=== PATIENT | female | born 1980 | race Caucasian/White ===

== ENCOUNTER 2021-02-28 04:32 | Emergency (ER) | payer BC, OTHER ==
[2021-02-28] MEDS ORDERED: predniSONE 20 MG Tab PO ONE (04:45)
[2021-02-28] MEDS ORDERED: Famotidine 20 MG Tab PO ONE (04:58)
--- NOTE | 2021-02-28 05:04 | EDM.PDOC ---
ED HPI GENERAL MEDICAL PROBLEM - General Chief Complaint: Cardiovascular Problem Stated Complaint: hives; chest pain Time Seen by Provider: 02/28/21 04:43 Source of Information: Reports: Patient History Limitations: Reports: No Limitations - History of Present Illness INITIAL COMMENTS - FREE TEXT/NARRATIVE: Presents emergency room for chief complaint of hives. Hives started on Sunday night after [place] She has been outdoors and [place]. No known insect bite. She has been dosing Benadryl throughout the day hives come and go with severe pruritus. They are all across her body. She woke up tonight with some chest tightness feeling sensation of throat swelling and lip swelling. No known triggers known, no history of anaphylactic reaction. She is not exactly sure what she was exposed to that she may be allergic to. Last Benadryl was right before bed with 50 mg. She has normally taken 25 mg dosing. Mid Chest pain Pain Score (Numeric/FACES): 5 - Related Data Allergies Allergy/AdvReac Type Severity Reaction Status Date / Time No Known Drug Allergies Allergy none Verified 02/28/21 04:37 Home Meds: Home Meds Hydrocodone/Acetaminophen [Lorcet Plus 7.5-325 mg Tablet] 7.5 - 325 mg PO Q6HR PRN 06/29/14 [History] Ibuprofen [Children's Motrin] 30 ml PO Q6HR PRN 06/29/14 [History] LORazepam [Ativan] 0.5 mg PO TID 06/29/14 [History] Levothyroxine [Synthroid] 50 mcg PO DAILY 06/29/14 [History] cephALEXin [Keflex 250 MG/5 ML Susp] 5.6 ml PO Q6HR 06/29/14 [History] Ondansetron [Zofran ODT] 8 mg PO Q8HR PRN 06/30/14 [History] Promethazine [Phenergan] 0.25 mcg TOP ASDIRECTED PRN 06/30/14 [History] Social & Family History - Living Situation & Occupation Living situation: Reports: ED ROS GENERAL - Review of Systems Review Of Systems: Comprehensive ROS is negative, except as noted in HPI. 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) Skin: Reports: Pruritis, Urticaria ED EXAM, GENERAL - Physical Exam Exam: See Below Exam Limited By: No Limitations General Appearance: Alert, WD/WN, No Apparent Distress Throat/Mouth: Normal Inspection, Normal Lips, Normal Oropharynx, Normal Voice, No Airway Compromise, Other (There is slight angioedema to her upper lip) Head: Atraumatic, Normocephalic Neck: Normal Inspection, Supple, Non-Tender Respiratory/Chest: No Respiratory Distress, Lungs Clear, Normal Breath Sounds, No Accessory Muscle Use Cardiovascular: Normal Peripheral Pulses, Regular Rate, Rhythm Extremities: Normal Inspection, Normal Range of Motion Neurological: Alert, Oriented, Other Psychiatric: Normal Affect Skin Exam: Warm, Dry, Intact, Other (Urticarial rash all throughout her body.) Course - Vital Signs Last Recorded V/S: Last Vital Signs Temp 98.5 F 02/28/21 04:38 Pulse 84 02/28/21 04:38 Resp 20 02/28/21 04:38 BP 124/83 02/28/21 04:38 Pulse Ox 100 02/28/21 04:38 - Orders/Labs/Meds Meds: Medications Discontinued Medications Generic Name Dose Route Start Last Admin Trade Name Anita PRN Reason Stop Dose Admin Prednisone 40 mg 02/28/21 04:45 02/28/21 04:47 Prednisone 20 Mg Tab PO 02/28/21 04:46 40 mg ONETIME ONE Administration - Re-Assessments/Exams Free Text/Narrative Re-Assessment/Exam: 02/28/21 05:05 No signs of anaphylactic reaction. No wheezing no chest pain at this time. No abnormal vital signs. give her 40 mg prednisone with a snack along with 20 mg p.o. Pepcid for an H2 johnny. She may take Pepcid p.o. daily as well starting tomorrow. Discussed [id number] antihistamines Claritin or Zyrtec to take during daytime nodule at nighttime. Prednisone dosing discussed take it with food. Return precaution discussed patient. No indication at this time for epinephrine injection however the prescription of EpiPen was sent with patient if she would like to have on hand. Indications discussed in thorough with the patient of indications why she would use EpiPen. Departure - Departure Time of Disposition: 04:56 Disposition: Home, Self-Care 01 Condition: Good Clinical Impression: Hives Instructions: Hives Additional Instructions: take prednisone next dosing at 2 pm today with food 20 mg, then next dosing starting twice daily, one tablet in the morning with breakfast then next tablet mid afternoon with snack. avoid taking your second dosing in the evening, may have trouble sleeping. Sepsis Event Note (ED) - Evaluation Sepsis Screening Result: No Definite Risk - Focused Exam Vital Signs: Vital Signs Temp Pulse Resp BP Pulse Ox 02/28/21 04:38 98.5 F 84 20 124/83 100
== END 2021-02-28 05:15 | disposition home or self-care (01) ==
LOC: KA.ED 04:32
DX: L50.9 Urticaria, unspecified (principal); Z79.899 Other long term (current) drug therapy
CPT/HCPCS: 99283; A9270-GY; J7512